=== PATIENT | male | born 1990 | race Caucasian/White ===

== ENCOUNTER → 2018-02-13 | Outpatient (CLI) | payer OTHER ==
--- NOTE | 2018-02-15 14:50 | US ---
EXAM: Soft Tissue,Abdomen CLINICAL HISTORY: PERIUMBILIC SWELLING. R19.05 COMPARISON STUDY: None TECHNICAL: Ultrasound evaluation of the anterior abdominal wall in the area of palpable concern. FINDINGS: There is a defect within the ventral abdominal wall. The defect is above the level of the umbilicus. The defect measures 2.4 x 2 cm and contains echogenic material that has the sonographic appearance of fat. No peristalsing bowel is seen within the lesion. IMPRESSION: Fat-containing ventral abdominal wall hernia just above the umbilicus. Electronically signed by: Liam Rodriguez MD 02/15/2018 2:49 PM CDT
== END ==
LOC: US 11:30
PROVIDERS: ATTEND Nurse Practitioner Family
DX: K43.9 Ventral hernia without obstruction or gangrene (principal)